=== PATIENT | male | born 1960 | race African-American/Black ===

== ENCOUNTER 2017-01-13 10:05 | Emergency (ER) | payer MEDICAID ==
[~2017-01-13] VITALS: Ht 175.3 cm; Wt 59.0 kg
[2017-01-13 12:11] VITALS: BP 148/86
== END 2017-01-13 14:13 | disposition home or self-care (01) ==
LOC: ER 11:07
DX: T83.098A Other mechanical complication of other urinary catheter, initial encounter (principal); N40.0 Benign prostatic hyperplasia without lower urinary tract symptoms; Y84.6 Urinary catheterization as the cause of abnormal reaction of the patient, or of later complication, without mention of misadventure at the time of the procedure; Y92.018 Other place in single-family (private) house as the place of occurrence of the external cause
CPT/HCPCS: 99284

== ENCOUNTER 2017-01-23 13:47 | Emergency (ER) | payer MEDICAID ==
[~2017-01-23] VITALS: Ht 175.3 cm; Wt 73.0 kg
[2017-01-23 14:23] VITALS: BP 154/86
== END 2017-01-23 18:05 | disposition home or self-care (01) ==
LOC: ER 14:45
DX: T83.098A Other mechanical complication of other urinary catheter, initial encounter (principal); I10 Essential (primary) hypertension; F12.10 Cannabis abuse, uncomplicated; F17.200 Nicotine dependence, unspecified, uncomplicated
CPT/HCPCS: 99281